=== PATIENT | male | born 1980 | race African-American/Black ===

== ENCOUNTER 2017-02-26 01:48 | Emergency (ER) | payer MEDICAID ==
[~2017-02-26] VITALS: Ht 188 cm; Wt 86.0 kg
[2017-02-26 01:55] VITALS: BP 136/72
== END 2017-02-26 02:55 | disposition left against medical advice (07) ==
LOC: ER 01:48
DX: K08.89 Other specified disorders of teeth and supporting structures (principal); Z53.21 Procedure and treatment not carried out due to patient leaving prior to being seen by health care provider